=== PATIENT | male | born 1965 | race Two or more races ===

== ENCOUNTER 2018-11-11 13:18 | Emergency (ER) | payer BC, OTHER ==
[2018-11-11] MEDS ORDERED: Lidocaine 2% 10 ML Amp INJECT ONE (13:31)
--- NOTE | 2018-11-11 13:37 | EDM.PDOC ---
ED HPI GENERAL MEDICAL PROBLEM - General Chief Complaint: Laceration Stated Complaint: LEFT HAND INJURY Time Seen by Provider: 11/11/18 13:20 Source of Information: Reports: Patient, RN, RN Notes Reviewed History Limitations: Reports: No Limitations - History of Present Illness INITIAL COMMENTS - FREE TEXT/NARRATIVE: Patient presents to the ED at [facility] for the evaluation of a laceration to the palmar surface of the 4th digit left hand. Patient states while at work, he was lifting up a grinding lid when it came down and lacerated the affected finger. Patient states he felt immediate pain. No previous injury or trauma. No previous left hand surgery. Patient denies any numbness, tingling, or paresthesia of the RUE. This is a work related injury. Onset: Today Onset Date: 11/11/18 - Related Data Allergies Allergy/AdvReac Type Severity Reaction Status Date / Time Penicillins Allergy Anaphylactic Verified 02/09/16 15:11 Shock Home Meds: Home Meds Terbinafine [LamISIL] 250 mg PO DAILY 01/09/16 [History] ED ROS GENERAL - Review of Systems Review Of Systems: See Below Constitutional: Denies: Fever, Chills, Weakness Respiratory: Denies: Shortness of Breath, Cough Cardiovascular: Denies: Chest Pain, Palpitations Skin: Reports: Wound Neurological: Reports: No Symptoms ED EXAM, SKIN/RASH Exam: See Below Exam Limited By: No Limitations General Appearance: Alert, No Apparent Distress Respiratory/Chest: No Respiratory Distress, Lungs Clear, Normal Breath Sounds Cardiovascular: Normal Peripheral Pulses, Regular Rate, Rhythm Peripheral Pulses: 2+: Radial (L), Radial (R) Neurological: Alert, Oriented Skin: Warm, Dry, Intact, Wound/Incision (vertical laceration palmar surface 4th digit left hand; low grade venous ooze; laceration will require surgical closure for optimal wound healing) ED SKIN PROCEDURES - Laceration/Wound Repair Left Digit - 4th (Ring) Lac/Wound length In cm: 2 Appearance: Subcutaneous, Linear, Clean Distal NVT: Neuro & Vascular Intact, No Tendon Injury Anesthetic Type: Local Local Anesthesia - Lidocaine (Xylocaine): 2% Plain Local Anesthetic Volume: 5cc Skin Prep: Chlorhexidine (Hibiciens), Saline Exploration/Debridement/Repair: Wound Explored, In a Bloodless Field, Explored to Base, No Foreign Material Found Closed with: Sutures Suture Size: 4-0 # of Sutures: 5 Suture Type: Nylon, Interrupted, Simple Sterile Dressing Applied: Nurse Tetanus Status Addressed: Yes Complications: No Course - Orders/Labs/Meds Orders: Active Orders 24 hr Category Date Time Status Fingers Fourth Digit Lt F3 [CR] Stat Exams 11/11/18 13:29 Ordered Meds: Medications Discontinued Medications Generic Name Dose Route Start Last Admin Trade Name Freq PRN Reason Stop Dose Admin Lidocaine HCl 10 ml 11/11/18 13:31 11/11/18 13:45 Xylocaine-Mpf 2% (Sterile-Bandar) INJECT 11/11/18 13:32 10 ml ONETIME ONE Administration Departure - Departure Time of Disposition: 14:05 Disposition: Home, Self-Care 01 Condition: Good Clinical Impression: Encounter related to worker's compensation claim Laceration of finger of left hand Qualifiers: Encounter type: initial encounter Finger: ring finger Damage to nail status: without damage Foreign body presence: without foreign body Qualified Code(s): S61.215A - Laceration without foreign body of left ring finger without damage to nail, initial encounter - Discharge Information *PRESCRIPTION DRUG MONITORING PROGRAM REVIEWED*: Not Applicable *COPY OF PRESCRIPTION DRUG MONITORING REPORT IN PATIENT YONI: Not Applicable Instructions: Laceration Care, Adult, Stitches, Estrada, or Adhesive Wound Closure Referrals: Jaya Blanco NP [Primary Care Provider] - Forms: ED Department Discharge Additional Instructions: 1. Stay well hydrated and rest 2. Keep suture clean and dry 3. Keep bandage on for 24 hours, then remove 4. F/U in clinic in 10 days for recheck and possible suture removal - Problem List Review Problem List Initiated/Reviewed/Updated: Yes - My Orders Last 24 Hours: My Active Orders 11/11/18 13:29 Fingers Fourth Digit Lt F3 [CR] Stat - Assessment/Plan Last 24 Hours: My Active Orders 11/11/18 13:29 Fingers Fourth Digit Lt F3 [CR] Stat Assessment:: Finger Laceration Worker Comp encounter Plan: Suture placed without complications. Tolerated well. Suture will need to stay in for 10 days. F/U in clinic for removal and wound recheck.
--- NOTE | 2018-11-11 15:01 | CR ---
[id number] RAD/RAD Fingers Left Exam: RAD Fingers Left Indication:CRUSH INJURY Comparison: No prior imaging for comparison. Discussion: 6 mm mineralized structure adjacent to the middle phalanx along its volar aspect seen best on lateral view. Finding is nonspecific. However, the setting of trauma a small fracture fragment is possible. There is soft tissue swelling diffusely throughout the fourth digit. No other evidence of fracture. Bones are diffusely demineralized throughout the hand and wrist. Scattered changes of osteoarthritis, most prominent at the first digit CMC joint. Impression: As above. Jose E Cervantes MD 11/11/18 1500 Thank you for allowing us to participate in the care of your patient.
== END 2018-11-11 14:35 | disposition home or self-care (01) ==
LOC: VM.ED 13:18
DX: S61.215A Laceration without foreign body of left ring finger without damage to nail, initial encounter (principal); Z88.0 Allergy status to penicillin; W20.8XXA Other cause of strike by thrown, projected or falling object, initial encounter; Y99.0 Civilian activity done for income or pay
CPT/HCPCS: 12001; 73140-F3; 99283